=== PATIENT | male | born 1990 | race Caucasian/White ===

== ENCOUNTER 2022-12-24 14:28 | Emergency (ER) | payer BC ==
[~2022-12-24] VITALS: Ht 167.6 cm; Wt 65.8 kg
[2022-12-24 14:43] VITALS: BP_SYST 163; PULSE 85; RESP 18; TEMP 98.3; O2SAT 98
[2022-12-24] MEDS ORDERED: DOXY100C5 PO (15:20)
[2022-12-24] MEDS ORDERED: cefTRIAXone 500 MG in LIDOCAINE 1%, 20 ML MDV 1 ML IM ONE (15:30)
[2022-12-24 17:18] VITALS: BP_SYST 163; PULSE 85; RESP 18; TEMP 98.3; O2SAT 98
== END 2022-12-24 15:55 | disposition home or self-care (01) ==
LOC: SED 14:28
DX: A64 Unspecified sexually transmitted disease (principal); N34.2 Other urethritis; R10.30 Lower abdominal pain, unspecified; R30.0 Dysuria; Z79.899 Other long term (current) drug therapy
CPT/HCPCS: 99283; 36415; 96372; 87491; J0696

== ENCOUNTER 2024-03-16 17:30 | Emergency (ER) | payer BC ==
[~2024-03-16] VITALS: Ht 175.3 cm; Wt 77.1 kg
[~2024-03-16 17:30] MED LIST: DOXY100C5 PO
[2024-03-16 17:38] VITALS: BP_SYST 133; PULSE 81; RESP 18; TEMP 98.3; O2SAT 98
[2024-03-16] MEDS ORDERED: OFLO5DRO6 RIGHT EYE (18:26)
[2024-03-16 18:38] VITALS: BP_SYST 123; PULSE 76; RESP 17; TEMP 98.3; O2SAT 100
[2024-03-16] MEDS: TETRACAINE HCL/PF 0.5% OPHTHALMIC DROPS 4 ML OP ONE (18:38)
== END 2024-03-16 18:38 | disposition home or self-care (01) ==
LOC: SED 17:30
DX: S05.01XA Injury of conjunctiva and corneal abrasion without foreign body, right eye, initial encounter (principal); Z79.899 Other long term (current) drug therapy; Z79.2 Long term (current) use of antibiotics; X58.XXXA Exposure to other specified factors, initial encounter; Y93.89 Activity, other specified; Y92.89 Other specified places as the place of occurrence of the external cause; Y99.8 Other external cause status
CPT/HCPCS: 99283